=== PATIENT | male | born 1985 | race Caucasian/White ===

== ENCOUNTER 2023-08-05 15:42 | Emergency (ER) | payer BC, SELFPAY ==
[2023-08-05 15:50] VITALS: BP 168/108
[2023-08-05 16:08] LABS: % Basophils 0.8 % (0-2); % Immature Granulocytes 0.3 % (0-0.5); % Monocytes 7.5 % (1.7-9.3); % Neutrophils 41.4 % (42.2-75.2); Absolute Basophils 0.1 10^3/uL (0-0.2); Absolute Eosinophils 0.7 10^3/uL (0-0.7); Absolute Monocytes 0.6 10^3/uL (0.1-0.6); Absolute Neutrophils 3.1 10^3/uL (1.4-6.5); Hemoglobin 13.9 g/dL (13.0-18.0); Mean Corp Hgb Conc. 35.6 g/dL (33.0-37.0); Mean Corpuscular Volume 81.4 fL (80.0-94.0); Mean Platelet Volume 8.5 fL (7.4-10.4); Nucleated Red Blood Cells % 0 % (-); Platelet Count 183 10^3/uL (130-400); Red Blood Cell Count 4.79 10^6/uL (4.70-6.10); Red Cell Dist. Width 12.5 % (11.5-14.5); White Blood Cell Count 7.4 10^3/uL (4.8-10.8)
[2023-08-05 16:14] LABS: ALT (SGPT) 37 U/L (0-50); AST (SGOT) 33 U/L (17-59); Albumin 4.7 g/dl (3.5-5.0); Alkaline Phosphatase 68 U/L (38-126); Blood Urea Nitrogen 16 mg/dl (9-20); Calcium 9.4 mg/dl (8.4-10.2); Carbon Dioxide 30 mmol/L (22-30); Chloride 101 mmol/L (98-107); Glucose 96 mg/dl (70-99); Lipase 66 U/L (23-300); Sodium 139 mmol/L (135-145); Total Bilirubin 0.5 mg/dl (0.2-1.3); Total Protein 7.3 g/dl (6.3-8.2); eGFR > 60.00
[2023-08-05 16:51] LABS: Urine Albumin Negative (Neg - Trace); Urine Bilirubin Negative (Negative); Urine Character Clear (Clear); Urine Color Yellow; Urine Glucose Negative (Negative); Urine Ketone Trace (Negative); Urine Leukocyte 2+ (Negative); Urine Nitrite Negative (Negative); Urine Occult Blood Negative (Negative); Urine Specific Gravity 1.025 (<1.030); Urine Urobilinogen Negative (Neg - 1+)
[2023-08-05 17:02] LABS: Urine Mucus Many; Urine Red Blood Cell 0-2 /HPF (0-2); Urine Squamous Cell 0-2 /LPF (Few)
[2023-08-05 17:03] LABS: Urine Bacteria Few (Negative)
[2023-08-05 19:00] VITALS: BP 156/116
[2023-08-05 20:00] VITALS: BP 108/78
[2023-08-05] MEDS: TORADOL 30 MG IV (22:09)
[2023-08-05 22:11] VITALS: BP 113/86
--- NOTE | 2023-08-05 22:37 | ED.GENMED ---
History of Present Illness
General
Chief Complaint: Abdominal Pain
Source: patient
Exam Limitations: none
Time Seen by Provider: 08/05/23 18:46
Travel History
Have you had any contact with someone who has COVID-19?: No
Do you have any symptoms of coronavirus? Fever > 100 degrees, chills, cough, shortness of breath, sore throat, loss of taste or smell, muscle aches, or headache?: No
History of Present Illness
History of Present Illness:
38-year-old male presents complaining of gradually worsening abdominal pain starting this morning getting worse throughout the day it is more localized to the right lower abdomen currently. There was no associated fever or vomiting. No urinary
symptoms. No lack of height. No known sick contacts. No known injury. No other complaints at this time
Phy Exam
Physical Exam
Physical Exam:
General: Well-appearing male no acute respiratory distress
HEENT: Normocephalic atraumatic neck is supple
Heart: Regular rate and rhythm no murmur
Lungs: Clear no wheeze or rales
Abdomen: Soft tender to the right lower quadrant no guarding rebound normal bowel sounds nondistended
Extremities: No cyanosis or edema
Skin: Warm no rash
Course
Orders/Labs/Results
Orders:
Orders
08/05/23 15:53
US Abdomen - Appendix Only Urgent
Comment:
Reason For Exam: pain, RLQ tenderness
08/05/23 15:55
Complete Blood Count/With Diff Urgent
Comprehensive Metabolic Panel Urgent
Lipase Urgent
08/05/23 16:38
Urinalysis Reflex To Culture Urgent
Date Specimen was Collected: 08/05/23
Time Specimen was Collected: 15:52
Urine Microscopic Reflex Cult Urgent
Urine Culture Urgent
MELA Source: U
Specimen Description:
Date Specimen was Collected: 08/05/23
Time Specimen was Collected: 15:52
08/05/23 19:15
CT Abd/pelvis W Iv Cont Urgent
Comment:
Reason For Exam: rlq pain
08/05/23 22:04
Ketorolac [Toradol] 30 mg IV NOW STA
Abnormal Lab Results
08/05/23 08/05/23
15:55 16:38
Neutrophils % 41.4 L %
(42.2-75.2)
Eosinophils % 9.0 H %
(0-6)
Urine Ketones Trace A
(Negative)
Leukocyte Esterase Rfl 2+ A
(Negative)
Urine Bacteria (Reflex) Few A
(Negative)
08/05/23 15:55
08/05/23 15:55
Vital Signs
Initial and Last Documented VS:
Initial Vital Signs
Temp Pulse Resp BP Pulse Ox
98.6 F 59 18 168/108 99
08/05/23 15:50 08/05/23 15:50 08/05/23 15:50 08/05/23 15:50 08/05/23 15:50
Last Documented Vital Signs
Temp Pulse Resp BP Pulse Ox
98.6 F 59 18 113/86 98
08/05/23 15:50 08/05/23 15:50 08/05/23 15:50 08/05/23 22:11 08/05/23 22:15
MDM/Problems Addressed
Differential Diagnosis Includes:
Abdominal pain. Question possible appendicitis versus hernia versus abdominal wall strain.
Will check labs. CT pending.
*Critical Care Note
Total Time (30-74mins, 75-104mins- exclusive of procedures): Not Applicable
Update Note
Update Note:
Patient reevaluated still with some discomfort to the right lower abdomen. CT scan reviewed and demonstrates a normal appendix without acute finding within the abdomen. There is a 2 cm fat-containing umbilical hernia. Patient was given Toradol
for pain. Recommended Tylenol and Motrin at home and follow-up with general surgery
ED Attending Note
-
Portions of this chart may have been created with voice recognition software.� Occasional wrong word or��sound alike� substitutions may have occurred due to the inherent limitations of voice recognition software.
Discharge Plan
Departure
Patient Disposition: Home (Routine Discharge)
Date of Disposition: 08/05/23
Time of Disposition: 22:37
Patient with high blood pressure during this ER visit?: No
Discharge Problem:
Abdominal pain
Instructions: Abdominal Pain
Referrals:
Clemente Wilson MD [Active] -
Ijeoma Simpson MD [Family Provider] -
Activity Restrictions/Additional Instructions:
Continue with ibuprofen or Tylenol for pain. Please return here for worsening symptoms fever or vomiting otherwise follow-up with family doctor or general surgeon
Interventions
Interventions:
*Risk Screen - Suicide Last Done: 08/05/23 19:47
*General Assessment Last Done: 08/05/23 19:47
*Neglect/Abuse Screening Last Done: 08/05/23 19:47
ED- Fall Risk Assessment Last Done: 08/05/23 19:10
NW-Rqyixr-Pbjpkjbnkn Assessment Last Done: 08/05/23 19:10
Discharge Date and Time
Print Language: BENINESE
== END 2023-08-05 22:51 | disposition home or self-care (01) ==
LOC: EMR 15:42
PROVIDERS: EMERGENCY PHYSICIAN Emergency Medicine; FAMILY PHYSICIAN Family Medicine
DX: R10.9 Unspecified abdominal pain (principal)
CPT/HCPCS: 99284; 96374; 74177; 76705; 80053; 81003; 81015; 83690; 85025; 87086; Q9967